=== PATIENT | female | born 1965 | race Caucasian/White ===

== ENCOUNTER 2021-01-07 19:10 | Observation (INO) | payer BC, MEDICARE, SELFPAY ==
--- NOTE | ~2021-01-07 | XR_ITS ---
XR chest 1V portable DATE: 01/07/2021 19:43 INDICATION: Shortness of breath, worse with exertion TECHNIQUE: Portable upright AP chest on 01/07/2021 at 1941 hours COMPARISON: None FINDINGS: Heart size appears within normal limits for AP projection. There is pulmonary vascular alec estion and redistribution and mild prominence of minor fissure. There are perihilar and mid and lower lung zone infiltrates, left greater than right. Differential diagnosis includes pulmonary edema as w ell as pneumonia. Mild blunting of left costophrenic angle may indicate small left pleural effusion. No pneumothorax. Included skeletal structures are unremarkable. IMPRESSION: Congestive changes, bilateral infiltrates, left greater than right. Differential includes pulmonary edema and/or pneumonia Reviewed, dictated and finalized at location A.
[2021-01-07 19:13] VITALS: BP 224/93; PULSE 84; RESP 20; TEMP 37.3; O2SAT 92
--- NOTE | 2021-01-07 19:23 | ECG_ITS ---
Measurements Intervals [place] Rate: 82 P: 56 [place]: 125 QRS: 2 QRSD: 89 T: 81 QT: 395 QTc: 464 Interpretive Statements SINUS RHYTHM POSSIBLE LEFT ATRIAL ENLARGEMENT POOR R WAVE PROGRESSION, ANTERIOR LEADS BORDERLINE ST-T WAVE ABNORMALITY- HIGH LATERAL LEADS BASELINE ARTIFACT- I, II, III, AVR, AVL, AVF, V3-V6 ABNORMAL ECG Electronically Signed On 01-08-2021 8:40:12 CDT by Joe Beasley D.O.
[2021-01-07 19:58] LABS: Basophils Absolute Auto 0.1 K/mm3 (0.0-0.1); Basophils Percent Auto 0.6 % (0.2-1.2); Eosinophils Absolute Auto 0.1 K/mm3 (0-0.3); Eosinophils Percent Auto 1.1 % (0-4.4); Hematocrit 38.1 % (37.0-47.0); Hemoglobin 12.5 g/dL (12.0-15.0); Immature Granulocyte Absolute 0.06 K/mm3 (0.00-0.031); Immature Granulocyte Percent A 0.6 % (0-0.5); Lymphocytes Percent Auto 12.5 % (18.3-44.2); Mean Corpuscular HGB Conc 32.8 g/dl (32-36); Mean Corpuscular Hemoglobin 28.7 pg (26-34); Mean Corpuscular Volume 87.6 fl (80-100); Monocytes Absolute Auto 0.4 K/mm3 (0.1-0.6); Neutrophils Absolute Auto 8.5 K/mm3 (1.3-6.7); Neutrophils Percent Auto 81.2 % (45.5-73.1); Platelet Count Result 240 k/mm3 (150-375); Red Blood Count 4.35 M/mm3 (4.2-5.4); Red Cell Distribution Width 13.2 % (11.5-14.5); White Blood Count 10.4 K/mm3 (4.5-10.0)
[2021-01-07] MEDS: NITROGLYCERIN OINTMENT 1 INCH DOSE TRANSDERM (19:58)
[2021-01-07] MEDS: FUROSEMIDE INJ 40 MG/4 ML VIAL IV PUSH (19:59)
[2021-01-07 20:08] LABS: Alanine Aminotransferase 14 U/L (4-35); Albumin Level 4.3 g/dL (3.5-5.1); Alkaline Phosphatase 88 U/L (38-126); Anion Gap 10 mmol/L (8-16); Aspartate Amino Transferase 27 U/L (14-36); Bilirubin,Total 0.9 mg/dL (0.2-1.3); Blood Urea Nitrogen 20 mg/dL (7-17); Calcium 9.2 mg/dL (8.4-10.2); Carbon Dioxide 26 mmol/L (22-30); Chloride 101 mmol/L (98-107); Estimated CRCL calculation 60 ml/min; Estimated Glomerular Filt Rate > 60; Glucose 365 mg/dL (65-105); Lactic Acid Reflex 1.4 mmol/L (0.7-2.1); Magnesium 2.1 mg/dL (1.6-2.3); Potassium 3.8 mmol/L (3.4-5.0); Sodium 137 mmol/L (137-145)
[2021-01-07 20:09] LABS: INR 0.9; Partial Thromboplastin Time 26.1 SECONDS (22.3-36.8); Prothrombin Time 12.7 Seconds (11.1-14.7)
--- NOTE | 2021-01-07 20:14 | ED.GENADULT ---
HPI - General Adult General Chief complaint: Shortness of Breath/Dyspnea Stated complaint: SOB Time Seen by Provider: 01/07/21 19:21 History of Present Illness HPI narrative: Is a 55-year-old female who presents the emergency department with chief complaint of shortness of breath. Patient reports she has history of congestive heart failure reports that fairly recently she was seen at the [facility] in [place] and was treated with IV Lasix and increased her home dose of Lasix. The patient is currently in town visiting her son and this morning noticed that about 7:00 in the morning she started having increasing shortness of breath. Patient reports over the last several days she had about a 5 pound weight gain patient states that she is unable to get a good deep breath and this feels similar to whenever she has had fluid overload in the past. Review of Systems Review of Systems: Narrative: A 10 system review of systems was completed on the patient and is negative except for what is stated in the HPI. Nursing and ancillary documentation was reviewed. PMFSH Social History Social History Gender identity (if verbalized by the patient): Female Comments Past medical history significant for congestive heart failure cardiac disease Surgical history the patient has a cardiac stent Exam Narrative: Exam Narrative: GENERAL: Well-appearing, well-nourished, and in no acute distress. HEAD: Normocephalic, atraumatic. EYES: PERRLA and EOMI. ENT: Nares clear, no rhinorrhea or epistaxis. Mucous membranes moist. NECK: Supple. CHEST: Clear to auscultation. No respiratory distress. HEART: Regular rate and rhythm. No murmur heard. Normal peripheral pulses. ABDOMEN: Soft, nontender, nondistended, normal active bowel sounds. EXTREMITIES: Normal range of motion. +1 edema. SKIN: Warm, dry, no rash. NEURO: No focal deficits. Alert and oriented x3. PSYCH: Normal mood and affect. Course Vital Signs Vital signs: Vital Signs Temperature 37.3 C 01/07/21 19:13 Pulse Rate 84 01/07/21 19:13 Respiratory Rate 20 01/07/21 19:13 Blood Pressure 224/93 H 01/07/21 19:13 Pulse Oximetry 92 01/07/21 19:13 Temperature 37.3 C 01/07/21 19:13 Pulse Rate 84 01/07/21 19:13 Respiratory Rate 20 01/07/21 19:13 Blood Pressure 224/93 H 01/07/21 19:13 Pulse Oximetry 92 01/07/21 19:13 Medical Decision Making Vital Signs Vital Signs: Vital Signs Temperature 37.3 C 01/07/21 19:13 Pulse Rate 84 01/07/21 19:13 Respiratory Rate 20 01/07/21 19:13 Blood Pressure 224/93 H 01/07/21 19:13 Pulse Oximetry 92 01/07/21 19:13 Temperature 37.3 C 01/07/21 19:13 Pulse Rate 84 01/07/21 19:13 Respiratory Rate 20 01/07/21 19:13 Blood Pressure 224/93 H 01/07/21 19:13 Pulse Oximetry 92 01/07/21 19:13 Lab Data Result diagrams: 01/07/21 19:49 01/07/21 19:49 Labs: Lab Results 01/07/21 01/07/21 01/07/21 Range/Units 19:49 19:49 19:49 WBC 10.4 H (4.5-10.0) K/mm3 RBC 4.35 (4.2-5.4) M/mm3 Hgb 12.5 (12.0-15.0) g/dL Hct 38.1 (37.0-47.0) % MCV 87.6 (80-100) fl MCH 28.7 (26-34) pg MCHC 32.8 (32-36) g/dl RDW 13.2 (11.5-14.5) % Plt Count 240 (150-375) k/mm3 MPV 11.0 H (7.4-10.4) fl Immature Gran % (Auto) 0.6 H (0-0.5) % Neut % (Auto) 81.2 H (45.5-73.1) % Lymph % (Auto) 12.5 L (18.3-44.2) % [place] % (Auto) 4.0 (2.6-8.5) % Eos % (Auto) 1.1 (0-4.4) % Baso % (Auto) 0.6 (0.2-1.2) % Lymph # (Auto) 1.30 (0.9-3.2) K/mm3 [place] # (Auto) 0.4 (0.1-0.6) K/mm3 Eos # (Auto) 0.1 (0-0.3) K/mm3 Baso # (Auto) 0.1 (0.0-0.1) K/mm3 Abs Immat Gran (auto) 0.06 H (0.00-0.031) K/mm3 Absolute Neuts (auto) 8.5 H (1.3-6.7) K/mm3 Absolute Nucleated RBC 0.0 (0.0-0.012) K/mm3 Nucleated RBC % 0.0 (0.0-0.2) % PT 12.7 (11.1-14.7) Seconds INR 0.9 APTT 26.1 (22.3-36.8
[2021-01-07 20:21] LABS: NT Pro B Type Natriuretic Pept 6120 PG/ML (5-100); Troponin I 0.038 ng/mL (0.000-0.034)
[2021-01-07 21:13] VITALS: BP 211/88; PULSE 82; RESP 22; O2SAT 94
[2021-01-07] MEDS: ASPIRIN 81 MG CHEWABLE TABLET 324 MG PO (21:39)
[2021-01-07] MEDS: ACETAMINOPHEN 500 MG TABLET 1000 MG PO (21:40)
[2021-01-07 21:43] VITALS: BP 210/90; PULSE 86; RESP 20; O2SAT 97
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
[2021-01-07 22:17] VITALS: BP 207/84; PULSE 81; RESP 22; O2SAT 95
--- NOTE | 2021-01-07 22:51 | PC.NURSE ---
dr. navarrete aware of bp.
[2021-01-07 23:03] VITALS: BP 183/76; PULSE 82; RESP 20; O2SAT 95
[2021-01-07] MEDS: hydrALAZINE HCL 20 MG/ML VIAL 10 MG IV PUSH (23:13)
[2021-01-07 23:30] VITALS: BP 158/89; PULSE 84; RESP 20; TEMP 36.8; O2SAT 93
--- NOTE | 2021-01-07 23:30 | PC.NURSE ---
This patient, Valentino aVldes, was admitted to IMU Room 214-01. Patient/family oriented to hospital policies and general routines including ID bracelet, bed and alarms, visiting hours, pain management, procedures, bathroom and other care routines, personal items, smoking policy, room service/diet, and visiting hours. Information on how to activate the Rapid Response Team has been discussed. Patient/Family are encouraged to report perceived risks to care and to ask questions if they do not understand what they are told or what they should do.
[2021-01-07 23:48] VITALS: BMI 29.8
[2021-01-08] VITALS (10 sets, daily range): BP systolic 121–172; BP diastolic 60–77; PULSE 6–76; RESP 16; TEMP 36.2–36.6; O2SAT 91–96
[2021-01-08 00:48] LABS: Troponin I 0.035 ng/mL (0.000-0.034)
[2021-01-08 01:08] LABS: Glucose Point of Care 403 (65-105)
[2021-01-08] MEDS: lisinopriL 20 MG TABLET 40 MG PO (01:11)
[2021-01-08] MEDS: amLODIPine BESYLATE 5 MG TABLET PO (01:12)
[2021-01-08] MEDS: METOPROLOL SUCCINATE EXT REL 25 MG TABCR PO (01:12)
[2021-01-08] MEDS: PANTOPRAZOLE 40 MG TABLET PO (01:12)
[2021-01-08] MEDS: ISOSORBIDE MONONITRATE 30 MG TAB.ER.24H PO (01:13)
[2021-01-08] MEDS: DULoxetine HCL 20 MG CAPSULE.DR PO (01:13)
[2021-01-08] MEDS: CLOPIDOGREL BISULFATE 75 MG TABLET PO (01:13)
[2021-01-08] MEDS: ROSUVASTATIN 10 MG TABLET 20 MG PO (01:13)
[2021-01-08] MEDS: POTASSIUM CHLORIDE 10 MEQ TABLET.ER PO (01:14)
[2021-01-08] MEDS: GABAPENTIN 100 MG CAPSULE 200 MG PO (01:14)
[2021-01-08] MEDS: ASPIRIN 81 MG ENTERIC TABLET PO (01:15)
[2021-01-08] MEDS: INSULIN ASPART (*BKC) 100 UNITS/ML 10 UNITS SUB-Q ×2 (01:15→04:47)
[2021-01-08 04:08] LABS: Glucose Point of Care 359 (65-105)
[2021-01-08 04:18] LABS: Hemoglobin A1C 12.6 % (<5.7)
[2021-01-08 04:23] LABS: Troponin I 0.019 ng/mL (0.000-0.034)
[2021-01-08] MEDS: INSULIN GLARGINE (*BKC) 100 UNITS/ML 10 UNITS SUB-Q (04:47)
[2021-01-08 08:08] LABS: Glucose Point of Care 226 (65-105)
[2021-01-08] MEDS: ENOXAPARIN 40 MG/0.4 ML SYRINGE SUB-Q (09:03)
[2021-01-08] MEDS: INSULIN ASPART (*BKC) 100 UNITS/ML SUB-Q ×2 (09:03)
[2021-01-08] MEDS: FUROSEMIDE INJ 40 MG/4 ML VIAL IV PUSH (09:04)
--- NOTE | 2021-01-08 09:36 | PM.DS ---
DS: Admitting Diagnosis Admitting Diagnosis Admitting Diagnosis: (1) Hypertensive emergency: (2) CHF exacerbation: (3) Elevated troponin: (4) Type 2 diabetes mellitus with hyperglycemia: DS: Discharge Diagnosis Discharge Diagnosis (1) Hypertensive emergency: Code(s): I16.1 - Hypertensive emergency Status: Acute Assessment and Plan: PATIENT WAS RESTARTED ON HER HOME MEDS BLOOD PRESSURE BACK TO NORMAL PATIENT STATES THAT THAT JUST THIS WEEK SHE STARTED PROCEEDINGS (2) Type 2 diabetes mellitus with hyperglycemia: Qualifiers: Diabetes mellitus adjunct faculty for medical terminology insulin use: with fpc use Qualified Code(s): E11.65 - Type 2 diabetes mellitus with hyperglycemia; Z79.4 - long-term (current) use of insulin Code(s): E11.65 - Type 2 diabetes mellitus with hyperglycemia Status: Acute Assessment and Plan: PATIENT STARTED ON HOME MEDS SUGARS ARE MANAGEABLE (3) Elevated troponin: Code(s): R77.8 - Other specified abnormalities of plasma proteins Status: Acute Assessment and Plan: MILDLY MINIMALLY ELEVATED EKG REVIEWED NO ST SEGMENT OR T-WAVE ABNORMALITY (4) CHF exacerbation: Qualifiers: Heart failure type: systolic Qualified Code(s): I50.23 - Acute on chronic systolic (congestive) heart failure Code(s): I50.9 - Heart failure, unspecified Status: Acute Assessment and Plan: LIKELY SECONDARY TO PULMONARY EDEMA SECONDARY TO HIGH BLOOD PRESSURE PATIENT DIURESED DOING WELL (5) Congestive heart failure: Qualifiers: Heart failure chronicity: acute Heart failure type: unspecified Qualified Code(s): I50.9 - Heart failure, unspecified Code(s): I50.9 - Heart failure, unspecified Status: Acute Assessment and Plan: WILL FOLLOW-UP IN OUTPATIENT SETTING DS: Summary Hospital Course Reason for hospitalization: SHORTNESS OF BREATH Hospital Course: THIS IS A 55-YEAR-OLD FEMALE WITH PAST MEDICAL HISTORY SIGNIFICANT FOR HYPERTENSION TYPE 2 DIABETES MELLITUS THE PATIENT IS FROM OUT OF [facility] AND SHE IS VISITING HER DAUGHTER AND GRANDCHILDREN SHE PRESENTED TO THE EMERGENCY ROOM DUE TO SHORTNESS OF BREATH SHE WAS FOUND TO HAVE IT SYSTOLIC BLOOD PRESSURE IN THE 200'S PATIENT WAS ADMITTED TO INTERMEDIATE CARE UNIT WHERE SHE WAS PLACED BACK ON HER HOME MEDS AND BLOOD PRESSURE WAS BETTER CONTROLLED WELL HER SUGARS PATIENT STATED THAT SHE JUST STARTED [employer] PROCEEDING THIS WEEK AND THIS MIGHT BE PLAYING A ROLE IN TO HER ELEVATED BLOOD PRESSURE. PATIENT WAS DISCHARGED WILL BE FOLLOW-UP IN OUTPATIENT SETTING BACK WHERE SHE RESIDES Status at Discharge Cognitive/behavioral status at discharge: AAOX3 Functional status at discharge: independent ambulation Time Spent with Patient Time attestation: Total time spent providing and/or coordinating discharge services: Exam Narrative: Exam Narrative: PATIENT IS SITTING IN BED Const: General: comfortable, no acute distress, well developed, alert and awake Nutritional Appearance: average body habitus Orientation/consciousness: patient oriented x3 HENMT: Head: normal to inspection, normocephalic and atraumatic Ears: hearing grossly normal bilaterally Face and sinus: normal facial exam Eyes: General: appearance normal, both eyes and all related structures Pupils: Equal, round and reactive pupils present EOM: EOMs intact bilaterally Neck: Neck: full ROM, no lymphadenopathy and no JVD Thyroid: thyroid normal Lymphatic: no lymphadenopathy noted Resp: Effort & Inspection: normal respiratory effort and able to speak in complete sentences Auscultation: clear to auscultation bilaterally Cardio: Jugular venous distension: no JVD Rate: regular rate Rhythm: regular rhythm Heart sounds: S1 normal heart sound present and S2 normal heart sound present GI: GI Palp: Yes Soft to palpation and Yes No hepatosplenomegaly p
== END 2021-01-08 10:26 | disposition home or self-care (01) ==
LOC: ANHED 21:04 → ANHIMU 21:54
PROVIDERS: Admitting Provider Internal Medicine; Emergency Provider Emergency Medicine; Visit Provider Internal Medicine
DX: I16.1 Hypertensive emergency (principal); R06.02 Shortness of breath; I11.0 Hypertensive heart disease with heart failure; I50.22 Chronic systolic (congestive) heart failure; E11.65 Type 2 diabetes mellitus with hyperglycemia; R77.8 Other specified abnormalities of plasma proteins; I25.10 Atherosclerotic heart disease of native coronary artery without angina pectoris; E11.42 Type 2 diabetes mellitus with diabetic polyneuropathy; E78.5 Hyperlipidemia, unspecified; K21.9 Gastro-esophageal reflux disease without esophagitis; I25.5 Ischemic cardiomyopathy; Z79.4 Long term (current) use of insulin; Z79.02 Long term (current) use of antithrombotics/antiplatelets; Z79.82 Long term (current) use of aspirin; Z96.41 Presence of insulin pump (external) (internal)
CPT/HCPCS: 36415; 71045; 80053; 82948; 83036; 83605; 83735; 83880; 84484; 85025; 85610; 85730; 93005; 96372; 96374; 96375; 96376; 99285; A9270; G0378; J0360; J1650; J1815; J1940